=== PATIENT | male | born 1985 | race Caucasian/White ===

== ENCOUNTER 2018-04-11 13:24 | Emergency (ER) | payer SELFPAY ==
[~2018-04-11] VITALS: Ht 185.4 cm; Wt 95.3 kg
[~2018-04-11 13:24] MED LIST: DAYPRO600 M1 PO; MEDROL DOSEPAK4 MG PO; NAPROSYN500 MG PO; SKELAXIN800 MG PO; VICODIN 500 MG-1 TAB PO; ZOFRAN4 MG PO
[2018-04-11] MEDS ORDERED: CLINDAMYCIN HC300 MG PO (14:49)
[2018-04-11] MEDS ORDERED: AMOXICILLIN500 M2 PO (14:49)
[2018-04-11] MEDS ORDERED: NORCO 10-325 T1 EACH PO (14:50)
== END 2018-04-11 14:55 ==
LOC: ED 13:24
DX: K04.7 Periapical abscess without sinus (principal); Z90.49 Acquired absence of other specified parts of digestive tract

== ENCOUNTER 2021-03-21 22:30 | Emergency (ER) | payer SELFPAY ==
[~2021-03-21] VITALS: Ht 170.1 cm; Wt 72.6 kg
[~2021-03-21 22:30] MED LIST changes: +AMOXICILLIN500 M2 PO; +CLINDAMYCIN HC300 MG PO; +NORCO 10-325 T1 EACH PO
[2021-03-21 23:40] LABS: BASO # 0.1 10*3/uL (0.0-0.1); BASO % 0.7 % (0.0-1.0); EOS # 0.7 10*3/uL (0.0-0.4); EOS % 6.1 % (1.0-4.0); LYMPH # 3.1 10*3/uL (1.3-4.4); LYMPH % 25.3 % (27.0-41.0); MEAN CELL VOLUME 89.2 fl (80.0-94.0); MEAN CORPUSCULAR HGB CONC 33.6 g/dl (33.0-37.0); MEAN PLATELET VOLUME 9.8 fl (9.6-12.3); MONO # 0.9 10*3/uL (0.1-1.0); MONO % 7.8 % (3.0-9.0); NEUT # 7.3 10*3/uL (2.3-7.9); NEUT % 59.9 % (47.0-73.0); PLATELET COUNT AUTOMATED 263 10*3/uL (130-400); RED BLOOD COUNT 4.93 10*6/uL (4.50-5.90); RED CELL DISTRI WIDTH 13.6 % (0-14.5); WHITE BLOOD COUNT 12.1 10*3/uL (4.8-10.8)
[2021-03-21 23:40] LABS: BILIRUBIN Negative (Negative); BLOOD Negative (Negative); CLARITY Clear (Clear); COLOR Yellow (Yellow); GLUCOSE Negative (Negative); KETONE Negative (Negative); LEUKO ESTERASE Negative (Negative); NITRITE Negative (Negative); SPECIFIC GRAVITY 1.025 (1.001-1.030)
[2021-03-21 23:58] LABS: ALBUMIN 3.7 gm/dl (3.1-4.5); ALKALINE PHOSPHATASE 52 U/L (45-117); BUN 15 mg/dl (7-24); CHLORIDE 111 mmol/L (98-107); CREATININE 0.97 mg/dL (0.70-1.30); LIPASE 66 U/L (73-393); POTASSIUM 4.3 mmol/L (3.5-5.1); SGOT/AST 20 IU/L (3-35); SGPT/ALT 26 U/L (12-78); SODIUM 142 mmol/L (136-145); TOTAL PROTEIN 6.7 gm/dL (6.4-8.2)
[2021-03-22 01:33] LABS: WBC 0-2 wbc/hpf (0-5)
[2021-03-22] MEDS ORDERED: DICYCLOMINE HYD20 MG PO (02:56)
[2021-03-22] MEDS ORDERED: NAPROXEN250 MG PO (09:40)
[2021-03-22] MEDS ORDERED: TYLENOL325 M1 PO (09:40)
[2021-03-23] MEDS ORDERED: PRILOSEC20 M1 PO (09:47)
[2021-03-24] MEDS ORDERED: MAALOX ADVANCE355 M1 PO (09:40)
[2021-03-24] MEDS ORDERED: CARAFATE1 G1 PO (09:40)
== END 2021-03-22 02:40 | disposition home or self-care (01) ==
LOC: ED 22:30
PROVIDERS: Emergency Medicine
DX: K80.20 Calculus of gallbladder without cholecystitis without obstruction (principal); R63.4 Abnormal weight loss; Z90.49 Acquired absence of other specified parts of digestive tract; Z79.899 Other long term (current) drug therapy; Z79.2 Long term (current) use of antibiotics

== ENCOUNTER 2021-03-23 06:19 | Emergency (ER) | payer SELFPAY ==
[~2021-03-23] VITALS: Ht 185.4 cm; Wt 72.6 kg
[~2021-03-23 06:19] MED LIST changes: +DICYCLOMINE HYD20 MG PO; +NAPROXEN250 MG PO; +TYLENOL325 M1 PO
[2021-03-23 07:09] LABS: BASO # 0.1 10*3/uL (0.0-0.1); BASO % 0.7 % (0.0-1.0); EOS # 0.7 10*3/uL (0.0-0.4); EOS % 6.7 % (1.0-4.0); HEMATOCRIT 44.1 % (42.0-52.0); LYMPH # 2.2 10*3/uL (1.3-4.4); LYMPH % 20.4 % (27.0-41.0); MEAN CELL VOLUME 88.9 fl (80.0-94.0); MEAN CORPUSCULAR HGB 29.8 pg (27.0-31.0); MEAN CORPUSCULAR HGB CONC 33.6 g/dl (33.0-37.0); MEAN PLATELET VOLUME 9.9 fl (9.6-12.3); MONO # 0.7 10*3/uL (0.1-1.0); MONO % 6.5 % (3.0-9.0); NEUT # 6.9 10*3/uL (2.3-7.9); NEUT % 65.3 % (47.0-73.0); PLATELET COUNT AUTOMATED 264 10*3/uL (130-400); RED BLOOD COUNT 4.96 10*6/uL (4.50-5.90); RED CELL DISTRI WIDTH 13.6 % (0-14.5); WHITE BLOOD COUNT 10.6 10*3/uL (4.8-10.8)
[2021-03-23 07:23] LABS: ALBUMIN 3.7 gm/dl (3.1-4.5); ALKALINE PHOSPHATASE 51 U/L (45-117); BUN 15 mg/dl (7-24); CHLORIDE 111 mmol/L (98-107); CREATININE 0.87 mg/dL (0.70-1.30); LIPASE 51 U/L (73-393); POTASSIUM 4.1 mmol/L (3.5-5.1); SGOT/AST 14 IU/L (3-35); SGPT/ALT 24 U/L (12-78); SODIUM 139 mmol/L (136-145); TOTAL PROTEIN 6.4 gm/dL (6.4-8.2)
[2021-03-23] MEDS ORDERED: PRILOSEC20 M1 PO (09:47)
[2021-03-24] MEDS ORDERED: CARAFATE1 G1 PO (09:40)
[2021-03-24] MEDS ORDERED: MAALOX ADVANCE355 M1 PO (09:40)
== END 2021-03-23 12:00 | disposition home or self-care (01) ==
LOC: ED 06:19
PROVIDERS: Emergency Medicine
DX: K29.00 Acute gastritis without bleeding (principal); F17.210 Nicotine dependence, cigarettes, uncomplicated; Z79.899 Other long term (current) drug therapy; Z79.2 Long term (current) use of antibiotics; Z90.49 Acquired absence of other specified parts of digestive tract